=== PATIENT | female | born 1945 | race Two or more races ===

== ENCOUNTER 2021-12-16 14:47 | Outpatient (CLI) | payer OTHER | END 2021-12-16 14:55 | disposition home or self-care (01) | LOC: RAD 14:47 | PROVIDERS: ATTEND Orthopaedic Surgery | DX: M25.572 Pain in left ankle and joints of left foot (principal); M25.552 Pain in left hip ==

== ENCOUNTER 2022-12-30 09:46 | Outpatient (CLI) | payer OTHER | END 2022-12-30 09:53 | disposition home or self-care (01) | LOC: SONOGRAMA 09:46 | PROVIDERS: ATTEND Orthopaedic Surgery | DX: D34 Benign neoplasm of thyroid gland (principal); E04.9 Nontoxic goiter, unspecified; E04.2 Nontoxic multinodular goiter ==

== ENCOUNTER → 2024-03-13 09:09 | Outpatient (CLI) | payer OTHER | END | disposition home or self-care (01) | LOC: NUCLEAR 09:00 | PROVIDERS: ATTEND Internal Medicine | DX: R00.2 Palpitations (principal) ==